=== PATIENT | male | born 2005 | race Caucasian/White ===

== ENCOUNTER 2024-01-13 18:53 | Emergency (ER) | payer BC ==
[2024-01-13 19:15] VITALS: BP 123/69; PULSE 62; RESP 20; TEMP 99.7; BMI 27.0
[2024-01-13] MEDS ORDERED: LIDO 2%/EPI 1:200000 PRESRVFRE (20 ML SDVIAL) ONE (19:28)
== END 2024-01-13 21:30 | disposition home or self-care (01) ==
LOC: FER 18:53
DX: S01.81XA Laceration without foreign body of other part of head, initial encounter (principal); W20.8XXA Other cause of strike by thrown, projected or falling object, initial encounter
CPT/HCPCS: 70486-TC; 70490-TC; 99284-25